=== PATIENT | male | born 1965 | race Caucasian/White ===

== ENCOUNTER → 2017-02-20 | Outpatient (REF) | payer OTHER | LOC: M LAB REF 11:35 | PROVIDERS: ATTEND Family Medicine | DX: K52.9 Noninfective gastroenteritis and colitis, unspecified (principal) ==

== ENCOUNTER → 2017-04-14 | Outpatient (CLI) | payer OTHER ==
[2017-04-14 09:39] LABS: MEAN CORPUSCULAR HEMOGLOBIN 32.6 pg (27.0-33.0); MEAN CORPUSCULAR HGB CONC 35.1 g/dl (32.0-36.5); MEAN CORPUSCULAR VOLUME 92.9 fl (80.0-96.0); RED CELL DISTRIBUTION WIDTH 12.8 % (11.5-14.5); WHITE BLOOD COUNT 4.3 K/mm3 (4.0-10.0)
[2017-04-14 10:03] LABS: ALBUMIN 3.9 GM/DL (3.2-5.2); ALBUMIN/GLOBULIN RATIO 1.22 (1.00-1.93); ALKALINE PHOSPHATASE 75 U/L (45-117); ALT/SGPT 38 U/L (12-78); ANION GAP 9 MEQ/L (8-16); AST/SGOT 22 U/L (15-37); BILIRUBIN,TOTAL 0.4 MG/DL (0.2-1.0); BLOOD UREA NITROGEN 17 MG/DL (7-18); CALCIUM LEVEL 8.4 MG/DL (8.5-10.1); CARBON DIOXIDE LEVEL 28 MEQ/L (21-32); CHLORIDE LEVEL 101 MEQ/L (98-107); CHOLESTEROL LEVEL 195 MG/DL (<200); CREATININE FOR GFR 0.75 MG/DL (0.70-1.30); GLOMERULAR FILTRATION RATE > 60.0 (>56); GLUCOSE, FASTING 89 MG/DL (70-105); SODIUM LEVEL 138 MEQ/L (136-145); TOTAL PROTEIN 7.1 GM/DL (6.4-8.2); TRIGLYCERIDES LEVEL 465 MG/DL (<150)
== END ==
LOC: M LAB 08:30
PROVIDERS: ATTEND Family Medicine
DX: I10 Essential (primary) hypertension (principal); E29.1 Testicular hypofunction

== ENCOUNTER 2017-07-12 07:34 | Outpatient (CLI) | payer OTHER ==
[~2017-07-12] VITALS: Ht 177.8 cm; Wt 95.3 kg
[~2017-07-12 07:34] MED LIST: ALLO15TA PO; AZEL0.1S3; CELE1CAP9 PO; CENT1TAB13 PO; CYCL10TA PO; FISH1CAP14 PO; FLUT1SPR2; LORA10TA2 PO; LOSA50TA20 PO; MONT10TA2 PO; NS 1,000 ML IV ONE; OMEP20CA3 PO; PRAV40TA2 PO; PROPOFOL 500 MG/50 ML VIAL As Ordered ONE; ROPI1TAB PO; TEST200I14 IM; VERA40TA PO; VITA100067 PO
[2017-07-12] MEDS ORDERED: fentaNYL 100 MCG/2 ML INJECTION (J3010) As Ordered ONE (08:16)
--- NOTE | 2017-07-12 08:39 | ROOR ---
Patient Name: Tristan Mcintyre Procedure Date: 07/12/2017 8:18 AM Date of : 1965 Age: 51 Room: [facility] Gender: Male Note Status: Finalized Procedure: Upper Endoscopy + Biopsies Indications: Heartburn Providers: Rasheed Goins MD Referring MD: MAGUI LEE MD Requesting Provider: Medicines: Monitored Anesthesia Care Complications: No immediate complications. Procedure: Pre-Anesthesia Assessment: - The heart rate, respiratory rate, oxygen saturations, blood pressure, adequacy of pulmonary ventilation, and response to care were monitored throughout the procedure. The Endoscope was introduced through the mouth, and advanced to the second part of duodenum. The upper GI endoscopy was accomplished without difficulty. The patient tolerated the procedure well. Findings: The Z-line was irregular and was found 40 cm from the incisors. Multiple biopsies were obtained with cold forceps for evaluation to rule out Will's Esophagus randomly at the gastroesophageal junction. Localized mild inflammation characterized by congestion (edema) and erythema was found in the gastric antrum. Biopsies were taken with a cold forceps for Helicobacter pylori testing. The exam of the duodenum was otherwise normal. Impression: - Z-line irregular, 40 cm from the incisors. - Chronic gastritis. Biopsied. - Multiple biopsies were obtained at the gastroesophageal junction. - The examination was otherwise normal. Recommendation: - Patient has a contact number available for emergencies. The signs and symptoms of potential delayed complications were discussed with the patient. Return to normal activities tomorrow. Written discharge instructions were provided to the patient. - High fiber diet. - Discharge patient to home. - Follow an antireflux regimen. - Continue present medications. - Await pathology results. - Telephone GI clinic for pathology results in 1 week. - Return to referring physician. - The findings and recommendations were discussed with the patient's family. Rasheed Goins MD Rasheed Goins MD 07/12/2017 8:39:20 AM This report has been signed electronically. Number of Addenda: 0 Note Initiated On: 07/12/2017 8:18 AM Estimated Blood Loss: Estimated blood loss: none.
--- NOTE | 2017-07-12 08:53 | ROOR ---
Patient Name: Tristan Mcintyre Procedure Date: 07/12/2017 8:19 AM Date of : 1965 Age: 51 Room: [facility] Gender: Male Note Status: Finalized Procedure: Total Colonoscopy to Cecum Indications: Screening in patient at increased risk: Colorectal cancer in brother 60 or older Providers: Rasheed Goins MD Referring MD: MAGUI LEE MD Requesting Provider: Medicines: Monitored Anesthesia Care Complications: No immediate complications. Procedure: Pre-Anesthesia Assessment: - The heart rate, respiratory rate, oxygen saturations, blood pressure, adequacy of pulmonary ventilation, and response to care were monitored throughout the procedure. The Colonoscope was introduced through the anus and advanced to the cecum, identified by appendiceal orifice and ileocecal valve. The colonoscopy was performed without difficulty. The patient tolerated the procedure well. The quality of the bowel preparation was excellent. Findings: The perianal and digital rectal examinations were normal. Non-bleeding internal hemorrhoids were found during retroflexion. The hemorrhoids were small and Grade I (internal hemorrhoids that do not prolapse). Scattered small-mouthed diverticula were found in the recto-sigmoid colon, sigmoid colon and descending colon. The exam was otherwise without abnormality on direct and retroflexion views. Impression: - Non-bleeding internal hemorrhoids. - Diverticulosis in the recto-sigmoid colon, in the sigmoid colon and in the descending colon. - The examination was otherwise normal on direct and retroflexion views. - No specimens collected. - The exam was otherwise normal to the cecum. Recommendation: - Patient has a contact number available for emergencies. The signs and symptoms of potential delayed complications were discussed with the patient. Return to normal activities tomorrow. Written discharge instructions were provided to the patient. - High fiber diet. - Discharge patient to home. - Continue present medications. - Repeat colonoscopy in 5 years for surveillance. - Return to referring physician. - The findings and recommendations were discussed with the patient's family. Rasheed Goins MD Rasheed Goins MD 07/12/2017 8:53:08 AM This report has been signed electronically. Number of Addenda: 0 Note Initiated On: 07/12/2017 8:19 AM Estimated Blood Loss: Estimated blood loss: none.
[2017-07-12 09:08] VITALS: BP 143/97
== END 2017-07-12 09:25 | disposition home or self-care (01) ==
LOC: M OPP 07:34
PROVIDERS: ATTEND Internal Medicine Gastroenterology
DX: Z12.11 Encounter for screening for malignant neoplasm of colon (principal); Z80.0 Family history of malignant neoplasm of digestive organs; K64.0 First degree hemorrhoids; K57.30 Diverticulosis of large intestine without perforation or abscess without bleeding; R12 Heartburn; K22.8 Other specified diseases of esophagus; K29.50 Unspecified chronic gastritis without bleeding; I10 Essential (primary) hypertension; E78.00 Pure hypercholesterolemia, unspecified; M10.9 Gout, unspecified; K25.9 Gastric ulcer, unspecified as acute or chronic, without hemorrhage or perforation; M19.90 Unspecified osteoarthritis, unspecified site; M51.26 Other intervertebral disc displacement, lumbar region; J30.9 Allergic rhinitis, unspecified; R06.83 Snoring; Z87.891 Personal history of nicotine dependence; Z79.899 Other long term (current) drug therapy; Z88.0 Allergy status to penicillin
CPT/HCPCS: 43239; 45378; 88305; J3010

== ENCOUNTER → 2017-08-26 | Outpatient (CLI) | payer OTHER ==
[~2017-08-26] MED LIST changes: -NS 1,000 ML IV ONE; -PROPOFOL 500 MG/50 ML VIAL As Ordered ONE
--- NOTE | 2017-08-31 19:03 | SLEEPHOME ---
DATE OF STUDY: 08/26/2017 ORDERED BY: Ana Cordero NP Diagnostic home sleep testing was performed due to concern for the obstructive sleep apnea syndrome in this patient with a history of excessive somnolence and nonrestorative sleep. For testing, a NOX-T3 respiratory monitoring device was used. Continuous record was made of pulse, oxygen saturation, air flow, chest and abdominal strain, and body position. 2 hours and 12 minutes of data were reviewed. Of these, 2 hours and 5 minutes were marked as time in bed. During the interval marked time in bed, there were 43 respiratory events identified of 10 seconds in duration or greater for a respiratory event index of 20.5. The events were primarily obstructive. Baseline heart rate 92 beats per minute. Pulse rate ranged 84 to 107. Baseline saturation 91%. Lowest oxygen saturation 83%. Testing was performed in both the supine and non-supine positions. IMPRESSION: Abnormal home sleep testing with repetitive respiratory events and oxygen desaturation to 83% with a respiratory event index of 20.5 is consistent with the obstructive sleep apnea syndrome. RECOMMENDATION: The patient should be encouraged to undergo formal sleep evaluation with in-laboratory pressure titration in light of the significant oxygen desaturations identified.
== END ==
LOC: M SLEEP HO 11:23
PROVIDERS: ATTEND Nurse Practitioner Adult Health
DX: G47.30 Sleep apnea, unspecified (principal)

== ENCOUNTER → 2018-01-05 | Outpatient (CLI) | payer OTHER ==
[2018-01-05 09:57] LABS: HEMATOCRIT 48.3 % (42.0-52.0); HEMOGLOBIN 16.8 g/dl (14.0-18.0); MEAN CORPUSCULAR HEMOGLOBIN 31.6 pg (27.0-33.0); MEAN CORPUSCULAR HGB CONC 34.8 g/dl (32.0-36.5); PLATELET COUNT, AUTOMATED 243 10^3/uL (150-450); RED BLOOD COUNT 5.31 10^6/uL (4.30-6.10); RED CELL DISTRIBUTION WIDTH 13.2 % (11.5-14.5); WHITE BLOOD COUNT 4.2 10^3/uL (4.0-10.0)
[2018-01-05 10:06] LABS: AMORPHOUS SEDIMENT SMALL (NEGATIVE); APPEARANCE, URINE CLEAR (CLEAR); BACTERIA, URINE AUTO NEGATIVE (NEGATIVE); BILIRUBIN, URINE AUTO NEGATIVE (NEGATIVE); BLOOD, URINE BLOOD NEGATIVE (NEGATIVE); COLOR, URINE YELLOW (YELLOW); GLUCOSE, URINE (UA) AUTO NEGATIVE (NEGATIVE); KETONE, URINE AUTO NEGATIVE (NEGATIVE); LEUKOCYTE ESTERASE, URINE AUTO NEGATIVE (NEGATIVE); MUCUS, URINE SMALL (NEGATIVE); NITRITE, URINE AUTO NEGATIVE (NEGATIVE); PROTEIN, URINE AUTO NEGATIVE (NEGATIVE); RBC, URINE AUTO 1 /HPF (0-3); SPECIFIC GRAVITY URINE AUTO 1.016 (1.002-1.035); SQUAMOUS EPITHELIAL CELL UR AU 0 /HPF (0-6); UROBILINOGEN, URINE AUTO 0.2 mg/dL (0.0-2.0); WBC, URINE AUTO 0 /HPF (0-3)
[2018-01-05 10:29] LABS: ALBUMIN 4.1 GM/DL (3.2-5.2); ALBUMIN/GLOBULIN RATIO 1.28 (1.00-1.93); ALKALINE PHOSPHATASE 69 U/L (45-117); ALT/SGPT 42 U/L (12-78); AMYLASE 22 U/L (25-115); ANION GAP 8 MEQ/L (8-16); AST/SGOT 23 U/L (7-37); BILIRUBIN,TOTAL 0.6 MG/DL (0.2-1.0); BLOOD UREA NITROGEN 15 MG/DL (7-18); CALCIUM LEVEL 8.8 MG/DL (8.5-10.1); CARBON DIOXIDE LEVEL 30 MEQ/L (21-32); CHLORIDE LEVEL 98 MEQ/L (98-107); CREATININE FOR GFR 0.88 MG/DL (0.70-1.30); GLOMERULAR FILTRATION RATE > 60.0 (>56); GLUCOSE, FASTING 101 MG/DL (70-100); POTASSIUM SERUM 4.3 MEQ/L (3.5-5.1); PROSTATIC SPECIFIC AG MONITOR 1.75 NG/ML (< 4.0); SODIUM LEVEL 136 MEQ/L (136-145); TOTAL PROTEIN 7.3 GM/DL (6.4-8.2)
[2018-01-05 11:06] LABS: TESTOSTERONE 237 NG/DL (241-827)
[2018-01-05 11:25] LABS: ESTIMATED AVERAGE GLUCOSE 105 MG/DL (60-110); HEMOGLOBIN A1c 5.3 %
== END ==
LOC: M LAB 09:12
DX: R10.13 Epigastric pain (principal)
CPT/HCPCS: 82150

== ENCOUNTER → 2018-01-10 | Outpatient (CLI) | payer OTHER ==
[~2018-01-10] MED LIST changes: -ALLO15TA PO; -AZEL0.1S3; -CELE1CAP9 PO; -CENT1TAB13 PO; -CYCL10TA PO; -FISH1CAP14 PO; -FLUT1SPR2; +GASTROGRAFIN SOLUTION 30ML (Q9963) As Ordered; +ISOVUE-370 76% 100ML VIAL (Q9967) As Ordered; -LORA10TA2 PO; -LOSA50TA20 PO; -MONT10TA2 PO; -OMEP20CA3 PO; -PRAV40TA2 PO; -ROPI1TAB PO; -TEST200I14 IM; -VERA40TA PO; -VITA100067 PO
== END ==
LOC: M RAD 12:45
DX: R10.13 Epigastric pain (principal)
CPT/HCPCS: Q9963

== ENCOUNTER → 2018-03-15 | Outpatient (CLI) | payer OTHER ==
[2018-03-15 09:13] LABS: ESTIMATED AVERAGE GLUCOSE 97 MG/DL (60-110)
[2018-03-15 09:22] LABS: PROSTATIC SPECIFIC AG MONITOR 1.95 NG/ML (< 4.0)
[2018-03-15 09:27] LABS: TESTOSTERONE 236 NG/DL (241-827)
== END ==
LOC: M LAB 08:06
DX: E29.1 Testicular hypofunction (principal)
CPT/HCPCS: 84403

== ENCOUNTER → 2018-04-01 | Outpatient (CLI) | payer OTHER ==
[2018-04-01 08:02] LABS: HEMATOCRIT 45.7 % (42.0-52.0); HEMOGLOBIN 15.6 g/dl (13.5-17.5); MEAN CORPUSCULAR HEMOGLOBIN 31.5 pg (27.0-33.0); MEAN CORPUSCULAR HGB CONC 34.1 g/dl (32.0-36.5); MEAN CORPUSCULAR VOLUME 92.1 fl (80.0-96.0); PLATELET COUNT, AUTOMATED 246 10^3/uL (150-450); RED BLOOD COUNT 4.96 10^6/uL (4.30-6.10); RED CELL DISTRIBUTION WIDTH 13.2 % (11.5-14.5)
[2018-04-01 08:30] LABS: INR 0.93; PROTHROMBIN TIME 12.5 SECONDS (12.4-14.5)
[2018-04-01 08:31] LABS: PARTIAL THROMBOPLASTIN TIME 31.8 SECONDS (26.8-37.9)
== END ==
LOC: M LAB 07:39
DX: M43.16 Spondylolisthesis, lumbar region (principal); M48.061 Spinal stenosis, lumbar region without neurogenic claudication
CPT/HCPCS: 85610

== ENCOUNTER → 2018-05-10 | Outpatient (CLI) | payer OTHER ==
[2018-05-10 08:53] LABS: HEMATOCRIT 48.8 % (42.0-52.0); HEMOGLOBIN 16.6 g/dl (13.5-17.5); PLATELET COUNT, AUTOMATED 284 10^3/uL (150-450); RED BLOOD COUNT 5.36 10^6/uL (4.30-6.10); RED CELL DISTRIBUTION WIDTH 13.5 % (11.5-14.5); WHITE BLOOD COUNT 5.3 10^3/uL (4.0-10.0)
[2018-05-10 09:27] LABS: ALBUMIN 3.8 GM/DL (3.2-5.2); ALBUMIN/GLOBULIN RATIO 1.15 (1.00-1.93); ALKALINE PHOSPHATASE 77 U/L (45-117); ALT/SGPT 39 U/L (12-78); ANION GAP 7 MEQ/L (8-16); AST/SGOT 16 U/L (7-37); BILIRUBIN,TOTAL 0.6 MG/DL (0.2-1.0); BLOOD UREA NITROGEN 18 MG/DL (7-18); CALCIUM LEVEL 8.7 MG/DL (8.5-10.1); CARBON DIOXIDE LEVEL 30 MEQ/L (21-32); CHLORIDE LEVEL 102 MEQ/L (98-107); CHOLESTEROL LEVEL 157 MG/DL (<200); CHOLESTEROL RISK RATIO 4.906 (<5); CREATININE FOR GFR 0.88 MG/DL (0.70-1.30); GLOMERULAR FILTRATION RATE > 60.0 (>56); GLUCOSE, FASTING 90 MG/DL (70-100); HDL CHOLESTEROL 32 MG/DL (>40); LDL CHOLESTEROL 66.8 MG/DL (<100); NON-HDL-C 125 MG/DL; POTASSIUM SERUM 4.5 MEQ/L (3.5-5.1); PROSTATIC SPECIFIC AG MONITOR 2.39 NG/ML (< 4.0); SODIUM LEVEL 139 MEQ/L (136-145); TOTAL PROTEIN 7.1 GM/DL (6.4-8.2); TRIGLYCERIDES LEVEL 291 MG/DL (<150)
[2018-05-10 09:30] LABS: TESTOSTERONE 333 NG/DL (241-827)
[2018-05-10 09:43] LABS: ESTIMATED AVERAGE GLUCOSE 100 MG/DL (60-110); HEMOGLOBIN A1c 5.1 %
[2018-05-11 10:33] LABS: HEPATITIS B SURFACE ANTIGEN NEGATIVE (NEGATIVE)
[2018-05-11 10:47] LABS: HEPATITIS C VIRUS ABY INDEX 0.1 INDEX (<0.8)
[2018-05-11 10:48] LABS: HEPATITIS B CORE ANTIBODY IGM NEGATIVE (NEGATIVE)
[2018-05-11 10:51] LABS: HEPATITIS A ANTIBODY IGM NEGATIVE (NEGATIVE)
== END ==
LOC: M LAB 07:50
DX: I10 Essential (primary) hypertension (principal); R53.83 Other fatigue; E03.9 Hypothyroidism, unspecified
CPT/HCPCS: 84403

== ENCOUNTER → 2019-02-23 | Outpatient (CLI) | payer OTHER ==
[~2019-02-23] MED LIST changes: +ALLO300T2 PO; +AZEL0.1S3; +CELE1CAP9 PO; +CENT1TAB13 PO; +CYCL10TA PO; +FISH1CAP14 PO; +FLUT1SPR2; -GASTROGRAFIN SOLUTION 30ML (Q9963) As Ordered; -ISOVUE-370 76% 100ML VIAL (Q9967) As Ordered; +LORA-243 PO; +LOSA50TA88 PO; +MONT10TA2 PO; +OMEP20CA3 PO; +PRAV40TA2 PO; +ROPI1TAB PO; +TEST200I14 IM; +VERA40TA PO; +VITA100067 PO
[2019-02-23 08:25] LABS: HEMATOCRIT 46.9 % (42.0-52.0); HEMOGLOBIN 15.9 g/dl (13.5-17.5); MEAN CORPUSCULAR HEMOGLOBIN 31.9 pg (27.0-33.0); MEAN CORPUSCULAR HGB CONC 33.9 g/dl (32.0-36.5); PLATELET COUNT, AUTOMATED 274 10^3/uL (150-450); RED BLOOD COUNT 4.99 10^6/uL (4.30-6.10); WHITE BLOOD COUNT 4.2 10^3/uL (4.0-10.0)
[2019-02-23 08:39] LABS: INR 1.01; PROTHROMBIN TIME 13.4 SECONDS (12.1-14.4)
[2019-02-23 09:01] LABS: ALBUMIN 3.9 GM/DL (3.2-5.2); ALT/SGPT 36 U/L (12-78); BILIRUBIN,TOTAL 0.4 MG/DL (0.2-1.0); BLOOD UREA NITROGEN 15 MG/DL (7-18); CALCIUM LEVEL 8.9 MG/DL (8.5-10.1); CARBON DIOXIDE LEVEL 28 MEQ/L (21-32); CHLORIDE LEVEL 103 MEQ/L (98-107); CHOLESTEROL LEVEL 165 MG/DL (<200); CHOLESTEROL RISK RATIO 6.875 (<5); CREATININE FOR GFR 0.86 MG/DL (0.70-1.30); GLOMERULAR FILTRATION RATE > 60.0 (>56); GLUCOSE, FASTING 99 MG/DL (70-100); HDL CHOLESTEROL 24 MG/DL (>40); NON-HDL-C 141 MG/DL; SODIUM LEVEL 139 MEQ/L (136-145); TOTAL PROTEIN 6.7 GM/DL (6.4-8.2); TRIGLYCERIDES LEVEL 733 MG/DL (<150)
[2019-02-23 09:25] LABS: HEMOGLOBIN A1c 5.1 %
--- NOTE | 2019-02-23 20:41 | ECGEPIP ---
Stationary ECG Study [facility] Test Date: 2019-02-23 Pat Name: GEOFFREY ECHEVARRIA Department: Room: - Gender: M Yam Curer: [facility] : 1965 Requested By: Scottie Kan Order Number: [id number] Reading MD: Jas Burkett Measurements Intervals [place] Rate: 91 P: 50 MI: 172 QRS: 20 QRSD: 86 T: 90 QT: 354 QTc: 437 Interpretive Statements Normal sinus rhythm LA conduction disturbance? Slow R wave progression - rule out prior septal injury. Nonspecific ST/T-wave abnormalities Repolarization change from 02/19/15 - correlation advised Electronically Signed On 02-23-2019 20:41:24 EDT by Jas Burkett
--- NOTE | 2019-02-24 02:51 | REP ---
Clinical: Preoperative assessment with history of hypertension . Comparison: 10/29/2014, 02/19/2015 . Technique: PA and lateral. Findings: The mediastinum and cardiac silhouette are normal. The lung ashraf are clear and without acute consolidation, effusion, or pneumothorax. The skeletal structures are intact and normal. Impression: 1. No acute cardiopulmonary process. Electronically Signed by Gen Moran MD 02/24/2019 02:43 A
== END ==
LOC: M LAB 07:58
PROVIDERS: ATTEND Family Medicine
DX: Z01.812 Encounter for preprocedural laboratory examination (principal); I10 Essential (primary) hypertension

== ENCOUNTER → 2019-04-25 | Outpatient (CLI) | payer OTHER ==
[2019-04-25 09:14] LABS: HEMATOCRIT 43.5 % (42.0-52.0); HEMOGLOBIN 14.9 g/dl (13.5-17.5); MEAN CORPUSCULAR HEMOGLOBIN 31.8 pg (27.0-33.0); MEAN CORPUSCULAR HGB CONC 34.3 g/dl (32.0-36.5); MEAN CORPUSCULAR VOLUME 92.8 fl (80.0-96.0); PLATELET COUNT, AUTOMATED 221 10^3/uL (150-450); RED BLOOD COUNT 4.69 10^6/uL (4.30-6.10); WHITE BLOOD COUNT 3.9 10^3/uL (4.0-10.0)
[2019-04-25 09:18] LABS: ALBUMIN 3.8 GM/DL (3.2-5.2); ALT/SGPT 34 U/L (12-78); BILIRUBIN,TOTAL 0.4 MG/DL (0.2-1.0); BLOOD UREA NITROGEN 17 MG/DL (7-18); CALCIUM LEVEL 8.9 MG/DL (8.5-10.1); CARBON DIOXIDE LEVEL 27 MEQ/L (21-32); CHLORIDE LEVEL 104 MEQ/L (98-107); CHOLESTEROL LEVEL 160 MG/DL (<200); CHOLESTEROL RISK RATIO 5.925 (<5); CREATININE FOR GFR 0.89 MG/DL (0.70-1.30); GLOMERULAR FILTRATION RATE > 60.0 (>56); GLUCOSE, FASTING 101 MG/DL (70-100); HDL CHOLESTEROL 27 MG/DL (>40); NON-HDL-C 133 MG/DL; PROSTATIC SPECIFIC AG MONITOR 1.95 NG/ML (< 4.00); SODIUM LEVEL 139 MEQ/L (136-145); TOTAL PROTEIN 6.7 GM/DL (6.4-8.2); TRIGLYCERIDES LEVEL 743 MG/DL (<150)
[2019-04-25 10:01] LABS: TESTOSTERONE 177 NG/DL (241-827)
== END ==
LOC: M LAB 07:51
PROVIDERS: ATTEND Family Medicine
DX: R53.83 Other fatigue (principal)

== ENCOUNTER → 2019-06-27 | Outpatient (CLI) | payer OTHER ==
[~2019-06-27] MED LIST changes: +AMLO10TA5 PO; +BENA25CA4 PO; +CELE1CAP4 PO; +FISH1000 PO; +GABA-843 PO; +GEMF600T5 PO; +MELA3TAB2 PO; +METO25TA4 PO; +MULTCAP PO; +NORT10CA2 PO; -OMEP20CA3 PO; +OMEP20CA4 PO; +OXYC-517 PO; +OXYC5CAP56 PO; +PROZ10CA7 PO; +SUCR1SUS PO; +VITA-157 PO; +VITA500T PO; +VITAD1000T PO; +VITATAB31 PO; +ZYLO300T6 PO
[2019-06-27 08:01] LABS: HEMATOCRIT 41.7 % (42.0-52.0); HEMOGLOBIN 14.4 g/dl (13.5-17.5); MEAN CORPUSCULAR HEMOGLOBIN 31.9 pg (27.0-33.0); MEAN CORPUSCULAR HGB CONC 34.5 g/dl (32.0-36.5); MEAN CORPUSCULAR VOLUME 92.5 fl (80.0-96.0); PLATELET COUNT, AUTOMATED 287 10^3/uL (150-450); RED BLOOD COUNT 4.51 10^6/uL (4.30-6.10); WHITE BLOOD COUNT 3.4 10^3/uL (4.0-10.0)
[2019-06-27 08:21] LABS: HEMOGLOBIN A1c 5.6 %
[2019-06-27 08:33] LABS: ALT/SGPT 36 U/L (12-78); BILIRUBIN,TOTAL 0.4 MG/DL (0.2-1.0); BLOOD UREA NITROGEN 21 MG/DL (7-18); CALCIUM LEVEL 9.1 MG/DL (8.5-10.1); CARBON DIOXIDE LEVEL 28 MEQ/L (21-32); CHLORIDE LEVEL 102 MEQ/L (98-107); CHOLESTEROL LEVEL 191 MG/DL (<200); CHOLESTEROL RISK RATIO 5.968 (<5); CREATININE FOR GFR 0.86 MG/DL (0.70-1.30); GLOMERULAR FILTRATION RATE > 60.0 (>56); GLUCOSE, FASTING 101 MG/DL (70-100); HDL CHOLESTEROL 32 MG/DL (>40); NON-HDL-C 159 MG/DL; POTASSIUM SERUM 4.3 MEQ/L (3.5-5.1); PROSTATIC SPECIFIC AG MONITOR 1.33 NG/ML (< 4.00); SODIUM LEVEL 137 MEQ/L (136-145); TOTAL PROTEIN 7.2 GM/DL (6.4-8.2); TRIGLYCERIDES LEVEL 678 MG/DL (<150)
== END ==
LOC: M LAB 07:29
PROVIDERS: ATTEND Family Medicine
DX: Z01.818 Encounter for other preprocedural examination (principal)

== ENCOUNTER 2019-06-29 05:46 | Day surgery (SDC) | payer OTHER ==
[~2019-06-29] VITALS: Ht 177.8 cm; Wt 100.7 kg
[~2019-06-29 05:46] MED LIST changes: -PROZ10CA7 PO
[2019-06-29] MEDS ORDERED: LR 1,000 ML IV ONE (06:00)
[2019-06-29] MEDS ORDERED: PROZ10CA7 PO (06:13)
[2019-06-29 06:29] LABS: HEMATOCRIT 43.8 % (42.0-52.0); HEMOGLOBIN 14.9 g/dl (13.5-17.5); MEAN CORPUSCULAR HEMOGLOBIN 32.5 pg (27.0-33.0); MEAN CORPUSCULAR VOLUME 95.6 fl (80.0-96.0); PLATELET COUNT, AUTOMATED 284 10^3/uL (150-450); RED BLOOD COUNT 4.58 10^6/uL (4.30-6.10); WHITE BLOOD COUNT 3.7 10^3/uL (4.0-10.0)
[2019-06-29] MEDS ORDERED: BUPIVACAINE/EPIN 0.25% 30 ML VIAL As Ordered ONE (06:50)
[2019-06-29] MEDS ORDERED: MIDAZOLAM INJ 2 MG/2 ML VIAL (J2250) As Ordered ONE (08:21)
[2019-06-29] MEDS ORDERED: fentaNYL 250 MCG/5 ML INJECTION (J3010) As Ordered ONE (08:21)
[2019-06-29] MEDS ORDERED: dexameTHASONE 4 MG/ML 1ML VIAL (J1100) As Ordered ONE (08:21)
[2019-06-29] MEDS ORDERED: PROPOFOL 200 MG/20 ML VIAL As Ordered ONE (08:21)
[2019-06-29] MEDS ORDERED: ONDANSETRON 4MG/2ML VIAL (J2405) As Ordered ONE (08:21)
[2019-06-29] MEDS ORDERED: LIDOCAINE 2% INJ 100 MG/5 ML SDV (FOR ANES.) As Ordered ONE (08:21)
[2019-06-29 08:48] LABS: BLOOD UREA NITROGEN 20 MG/DL (7-18); GLUCOSE, FASTING 101 MG/DL (70-100)
[2019-06-29 08:49] LABS: CARBON DIOXIDE LEVEL 28 MEQ/L (21-32); CHLORIDE LEVEL 104 MEQ/L (98-107); GLOMERULAR FILTRATION RATE > 60.0 (>56); POTASSIUM SERUM 3.9 MEQ/L (3.5-5.1); SODIUM LEVEL 139 MEQ/L (136-145)
[2019-06-29] MEDS ORDERED: hydrALAZINE INJ 20 MG/ML VIAL As Ordered ONE (08:53)
[2019-06-29] MEDS: hydrALAZINE INJ 20 MG/ML VIAL IV PRN ×4 (08:56→09:11)
[2019-06-29 09:11] VITALS: BP 186/78
[2019-06-29] MEDS ORDERED: PERCOCET 5MG/325MG TAB PO PRN ×3 (09:15→09:30)
[2019-06-29] MEDS ORDERED: fentaNYL 100 MCG/2 ML INJECTION (J3010) IV PRN (09:15)
[2019-06-29] MEDS ORDERED: LR 1,000 ML IV SCH ×2 (09:15→09:30)
[2019-06-29] MEDS ORDERED: ONDANSETRON 4MG/2ML VIAL (J2405) IV PRN ×2 (09:15→09:30)
[2019-06-29] MEDS ORDERED: MORPHINE 4 MG/ML 1ML VIAL/SYRINGE (J2270) IV PRN (09:30)
[2019-06-29 09:37] VITALS: BP 140/76
--- NOTE | 2019-07-03 11:44 | RO ---
DATE OF PROCEDURE: 06/29/2019 PREOPERATIVE DIAGNOSIS: Left ulnar neuropathy across the elbow. POSTOPERATIVE DIAGNOSIS: Left ulnar neuropathy across the elbow. PROCEDURE PERFORMED: Left ulnar nerve decompression at the elbow. SURGEON: Masoud Solis MD SHOOTER HELPER: Dick Dooley, Physician Brothel Keeper ANESTHESIA: General. ESTIMATED BLOOD LOSS: Less than 30 mL. No tourniquet was required. No complications. INDICATION: Tristan is a 53-year-old gentleman who has numbness in the left upper extremity going on for a number of months. Electrodiagnostic studies suggest ulnar neuropathy. He has elected for operative intervention. Consent reviewed in detail, including a helen discussion of the pathology involved, the procedure proposed, the alternatives including doing nothing, and risks including but not limited to pain, failure, incomplete relief, need for more surgery, nerve injury, stiffness, infection, or some other issues. The patient agreed to proceed. DESCRIPTION OF PROCEDURE: Operative course: Identified in the holding area. Site and side verified. Brought to the operating room. Once anesthesia was administered, positioned in usual fashion for exposure of the left upper extremity. Once he was sterilely prepped and draped and positioned, and I and the semiconductor technician were comfortable with the patient's positioning, we began the procedure. The medial epicondyle of the left elbow was palpated. Incision was marked with a sterile marking pen. Infiltrated with 0.25% Marcaine with epinephrine 4 mL. I utilized loupe magnification. I made the incision with a 10 blade developed down through skin and subcuticular tissues with blunt dissection. Small cutaneous nerves crossing the incision were protected. Encountered the medial epicondyle and Rodriguez fascia. Rodriguez fascia was sharply opened with a 15 blade knife and an iris scissors. The ulnar nerve was exposed. We continued dissection proximally and distally using the iris scissors, as well as bipolar cautery, to help with hemostasis. The nerve was directly visualized throughout. The dissection continued approximately 3 fingerbreadths proximal to the medial condyle and approximately 2 fingerbreadths distal, splitting the flexor muscle group and fascia over the nerve. The nerve was mildly mobilized with a blunt spreading instrument. Then the elbow was placed through a range of motion. I appreciated significant decompression of the nerve. The nerve did not seem to spontaneously sublux. Next, irrigation was accomplished. The wound was closed with interrupted and running stitch. Steri-Strips applied. Dressing applied. The patient was then able to be extubated, moved to recovery room in good condition. For further details, please refer to medical record.
== END 2019-06-29 10:20 | disposition home or self-care (01) ==
LOC: M SDC 05:46
PROVIDERS: ATTEND Orthopaedic Surgery
DX: G56.22 Lesion of ulnar nerve, left upper limb (principal); I10 Essential (primary) hypertension; E78.5 Hyperlipidemia, unspecified; M10.9 Gout, unspecified; K21.9 Gastro-esophageal reflux disease without esophagitis; K58.8 Other irritable bowel syndrome; Z88.0 Allergy status to penicillin; G47.30 Sleep apnea, unspecified; Z79.899 Other long term (current) drug therapy; F32.9 Major depressive disorder, single episode, unspecified
CPT/HCPCS: 36415; 64718; 80048; 85027; J1100; J2250; J2405; J3010

== ENCOUNTER → 2019-10-11 | Outpatient (CLI) | payer OTHER ==
[~2019-10-11] MED LIST changes: +CHOL100029 PO; -MELA3TAB2 PO; +MELA3TAB60 PO; +PROZ10CA7 PO; -VITAD1000T PO
[2019-10-11 08:12] LABS: CHOLESTEROL LEVEL 213 MG/DL (<200); HDL CHOLESTEROL 31 MG/DL (>40); LDL CHOLESTEROL 112 MG/DL (<100); NON-HDL-C 182 MG/DL; PROSTATIC SPECIFIC AG MONITOR 1.68 NG/ML (< 4.00); TRIGLYCERIDES LEVEL 351 MG/DL (<150)
[2019-10-11 09:49] LABS: TESTOSTERONE 308 NG/DL (241-827)
[2019-10-11 10:00] LABS: HEPATITIS B SURFACE ANTIGEN NEGATIVE (NEGATIVE)
[2019-10-11 10:27] LABS: HEPATITIS C VIRUS ABY INDEX 0.1 INDEX (<0.8)
[2019-10-11 10:30] LABS: HEPATITIS A ANTIBODY IGM NEGATIVE (NEGATIVE)
[2019-10-11 11:16] LABS: HEPATITIS B CORE ANTIBODY IGM NEGATIVE (NEGATIVE)
== END ==
LOC: M LAB 07:05
PROVIDERS: ATTEND Family Medicine
DX: I10 Essential (primary) hypertension (principal); R53.83 Other fatigue; E29.1 Testicular hypofunction

== ENCOUNTER → 2019-12-14 | Outpatient (CLI) | payer OTHER ==
[~2019-12-14] MED LIST changes: +OMEP1CAP73 PO; -OMEP20CA4 PO; +SUCR1ORA PO; -SUCR1SUS PO
--- NOTE | 2019-12-15 02:25 | REP ---
Clinical: Hypertension and chronic medical renal disease. Technique: Pugh scale and color Doppler evaluation of the kidneys and renal vasculature using curved array transducer. Findings: The kidneys are essentially normal in contour size and echogenicity and reniform shape without hydronephrosis, nephrolithiasis, or renal mass lesion. Right kidney measures 13.2 x 6.6 x 5.6 cm and includes 1 cm cyst. Left kidney measures 13.8 x 6.1 x 6.7 cm . Bladder is incompletely distended and grossly normal by current evaluation. Color Doppler evaluation of the renal vasculature demonstrates normal arterial wave patterns, velocities, renal aortic ratios, resistive indices and the acceleration time. No sonographic evidence for renal arterial stenosis noted. Renal vein is patent. Right Kidney: Peak arterial velocity: 109 cm/sec . Renal aortic ratio: 1.1 . Resistive indices: 0.63 - 0.66 . Acceleration times: 0.033 - 0.045 . Left kidney: Peak arterial velocity: 185 cm/sec . Renal aortic ratio: 1.9 . Resistive indices: 0.64 - 0.67 . Acceleration times: 0.036 - 0.042 . Impression: 1. 1 cm right mid pole cyst. 2. No hydronephrosis. 3. No definite renal arterial stenosis is appreciated although there is moderately asymmetric, increased velocity to the left main renal artery without further findings to suggest stenosis. Renal scintigraphy may be warranted to assess renal functionality. Electronically Signed by Gen Moran MD 12/15/2019 02:18 A
== END ==
LOC: M RAD 08:33
PROVIDERS: ATTEND Physician Assistant
DX: N28.1 Cyst of kidney, acquired (principal); I10 Essential (primary) hypertension

== ENCOUNTER → 2020-01-03 | Outpatient (CLI) | payer OTHER ==
[~2020-01-03] MED LIST changes: -MONT10TA2 PO; +MONT10TA4 PO; -ROPI1TAB PO; +ROPI1TAB3 PO
[2020-01-03 09:05] LABS: ALBUMIN 4.1 GM/DL (3.2-5.2); ALT/SGPT 33 U/L (12-78); BILIRUBIN,TOTAL 0.4 MG/DL (0.2-1.0); BLOOD UREA NITROGEN 20 MG/DL (7-18); CALCIUM LEVEL 9.1 MG/DL (8.5-10.1); CARBON DIOXIDE LEVEL 30 MEQ/L (21-32); CHLORIDE LEVEL 100 MEQ/L (98-107); CHOLESTEROL LEVEL 187 MG/DL (<200); CHOLESTEROL RISK RATIO 6.678 (<5); CREATININE FOR GFR 0.78 MG/DL (0.70-1.30); GLOMERULAR FILTRATION RATE > 60.0 (>56); GLUCOSE, FASTING 96 MG/DL (70-100); HDL CHOLESTEROL 28 MG/DL (>40); NON-HDL-C 159 MG/DL; POTASSIUM SERUM 3.8 MEQ/L (3.5-5.1); PROSTATIC SPECIFIC AG MONITOR 1.65 NG/ML (< 4.00); SODIUM LEVEL 136 MEQ/L (136-145); TOTAL PROTEIN 7.2 GM/DL (6.4-8.2); TRIGLYCERIDES LEVEL 435 MG/DL (<150)
[2020-01-03 09:11] LABS: TESTOSTERONE 230 NG/DL (241-827)
[2020-01-03 10:01] LABS: HEMOGLOBIN A1c 5.3 %
[2020-01-03 13:18] LABS: HEMATOCRIT 43.4 % (42.0-52.0); MEAN CORPUSCULAR HEMOGLOBIN 31.1 pg (27.0-33.0); MEAN CORPUSCULAR HGB CONC 34.6 g/dl (32.0-36.5); MEAN CORPUSCULAR VOLUME 89.9 fl (80.0-96.0); PLATELET COUNT, AUTOMATED 353 10^3/uL (150-450); RED BLOOD COUNT 4.83 10^6/uL (4.30-6.10); WHITE BLOOD COUNT 4.7 10^3/uL (4.0-10.0)
== END ==
LOC: M LAB 07:37
PROVIDERS: ATTEND Family Medicine
DX: I10 Essential (primary) hypertension (principal); R53.83 Other fatigue; E03.9 Hypothyroidism, unspecified

== ENCOUNTER → 2020-01-15 | Outpatient (CLI) | payer OTHER ==
[~2020-01-15] MED LIST changes: +ISOVUE-370 76% 100ML VIAL (Q9967) As Ordered ONE
--- NOTE | 2020-01-15 10:37 | REPVR ---
PROCEDURE INFORMATION: Exam: CT Angiography Abdomen and Pelvis With Contrast Exam date and time: 01/15/2020 8:58 AM Age: 54 years old Clinical indication: Other: Hypertension TECHNIQUE: Imaging protocol: Computed tomographic angiography of the abdomen and pelvis with intravenous contrast material. 3D rendering: MIP and/or 3D reconstructed images were created by the technologist. Radiation optimization: All CT scans at this facility use at least one of these dose optimization techniques: automated exposure control; mA and/or kV adjustment per patient size (includes targeted exams where dose is matched to clinical indication); or iterative reconstruction. Contrast material: ISOVUE 370; Contrast volume: 100 ml; Contrast route: IV; COMPARISON: CT ABD PELVIS WITH CONTRAST 01/10/2018 2:45 PM FINDINGS: Aorta: The vasculature demonstrates diffuse mild atherosclerotic calcification. Celiac trunk and mesenteric arteries: No occlusion or significant stenosis. Renal arteries: No occlusion or significant stenosis. Right iliac arteries: No occlusion or significant stenosis. Left iliac arteries: No occlusion or significant stenosis. Liver: There are no focal liver lesions present. Gallbladder and bile ducts: The gallbladder is normal. Pancreas: The pancreas is normal. Spleen: The spleen is normal. Adrenals: The adrenal glands are normal. Kidneys and ureters: The kidneys are normal. There is an unusual collateral arterial supply to the lower pole of the right kidney from the right iliac artery and the main renal artery is caudal in origin only 4 cm above the aortic bifurcation on coronal image 54. There is no obvious stenosis, however. At least 3 arteries supplying the left kidney from the usual level on coronal image 67. There appears to be mild ostial stenosis, particularly of the highest vessel supplying the upper pole. Stomach and bowel: Unremarkable. No obstruction. No mucosal thickening. Appendix: A normal appendix is identified. Intraperitoneal space: Unremarkable. No free air. No significant fluid collection. Lymph nodes: Unremarkable. No enlarged lymph nodes. Bladder: Unremarkable. No mass. Reproductive: Unremarkable as visualized. Bones/joints: The spine demonstrates moderate degenerative changes at multiple levels. There is moderate spinal stenosis at the mid lumbar levels and narrowing of the foramina. Soft tissues: There is a fat filled right inguinal hernia. IMPRESSION: 1. There is an unusual collateral arterial supply to the lower pole of the right kidney from the right iliac artery and the main renal artery is caudal in origin only 4 cm above the aortic bifurcation on coronal image 54. There is no obvious stenosis, however. 2. At least 3 arteries supplying the left kidney from the usual level on coronal image 67. There appears to be mild ostial stenosis, particularly of the highest vessel supplying the upper pole. Electronically signed by: Jay Desai On 01/15/2020 10:36:57 AM
== END ==
LOC: M RAD 08:17
PROVIDERS: ATTEND Internal Medicine Cardiovascular Disease
DX: I70.1 Atherosclerosis of renal artery (principal); M48.061 Spinal stenosis, lumbar region without neurogenic claudication; I10 Essential (primary) hypertension
CPT/HCPCS: 74174; Q9967

== ENCOUNTER → 2020-04-23 | Outpatient (CLI) | payer OTHER ==
[~2020-04-23] MED LIST changes: +CYCL-707 PO; -CYCL10TA PO; -ISOVUE-370 76% 100ML VIAL (Q9967) As Ordered ONE; -MELA3TAB60 PO; +MELA3TAB7 PO; +VITA-243 PO; -VITA500T PO
[2020-04-23 08:32] LABS: PROSTATIC SPECIFIC AG MONITOR 1.94 NG/ML (< 4.00)
== END ==
LOC: M LAB 07:27
PROVIDERS: ATTEND Family Medicine
DX: I10 Essential (primary) hypertension (principal)

== ENCOUNTER → 2020-11-20 | Outpatient (CLI) | payer OTHER ==
[~2020-11-20] MED LIST changes: -AMLO10TA5 PO; +AMLO1TAB25 PO; -MONT10TA4 PO; +MONT5TAB2 PO
[2020-11-20 10:43] LABS: ALBUMIN 4.2 GM/DL (3.2-5.2); ALT/SGPT 39 U/L (12-78); BILIRUBIN,TOTAL 0.6 MG/DL (0.2-1.0); BLOOD UREA NITROGEN 18 MG/DL (7-18); CALCIUM LEVEL 9.5 MG/DL (8.5-10.1); CARBON DIOXIDE LEVEL 32 MEQ/L (21-32); CHLORIDE LEVEL 98 MEQ/L (98-107); CHOLESTEROL LEVEL 208 MG/DL (<200); CHOLESTEROL RISK RATIO 6.933 (<5); CREATININE FOR GFR 0.74 MG/DL (0.70-1.30); GLOMERULAR FILTRATION RATE > 60.0 (>56); GLUCOSE, FASTING 111 MG/DL (70-100); HDL CHOLESTEROL 30 MG/DL (>40); NON-HDL-C 178 MG/DL; POTASSIUM SERUM 3.5 MEQ/L (3.5-5.1); SODIUM LEVEL 136 MEQ/L (136-145); TOTAL PROTEIN 7.6 GM/DL (6.4-8.2); TRIGLYCERIDES LEVEL 686 MG/DL (<150)
== END ==
LOC: M LAB 09:15
PROVIDERS: ATTEND Physician Assistant
DX: E78.2 Mixed hyperlipidemia (principal)

== ENCOUNTER → 2020-11-20 | Outpatient (CLI) | payer OTHER ==
[2020-11-20 09:55] LABS: HEMATOCRIT 44.4 % (42.0-52.0); HEMOGLOBIN 15.1 g/dl (13.5-17.5); MEAN CORPUSCULAR HEMOGLOBIN 30.8 pg (27.0-33.0); MEAN CORPUSCULAR VOLUME 90.6 fl (80.0-96.0); PLATELET COUNT, AUTOMATED 314 10^3/uL (150-450); WHITE BLOOD COUNT 4.1 10^3/uL (4.0-10.0)
[2020-11-20 10:39] LABS: ALBUMIN 4.3 GM/DL (3.2-5.2); ALT/SGPT 41 U/L (12-78); BILIRUBIN,TOTAL 0.5 MG/DL (0.2-1.0); BLOOD UREA NITROGEN 19 MG/DL (7-18); CALCIUM LEVEL 9.4 MG/DL (8.5-10.1); CARBON DIOXIDE LEVEL 31 MEQ/L (21-32); CHLORIDE LEVEL 98 MEQ/L (98-107); CHOLESTEROL LEVEL 209 MG/DL (<200); CHOLESTEROL RISK RATIO 6.966 (<5); CREATININE FOR GFR 0.76 MG/DL (0.70-1.30); GLOMERULAR FILTRATION RATE > 60.0 (>56); GLUCOSE, FASTING 113 MG/DL (70-100); HDL CHOLESTEROL 30 MG/DL (>40); NON-HDL-C 179 MG/DL; POTASSIUM SERUM 3.6 MEQ/L (3.5-5.1); PROSTATIC SPECIFIC AG MONITOR 1.61 NG/ML (< 4.00); SODIUM LEVEL 137 MEQ/L (136-145); TESTOSTERONE 66 NG/DL (241-827); TOTAL PROTEIN 7.6 GM/DL (6.4-8.2); TRIGLYCERIDES LEVEL 658 MG/DL (<150)
== END ==
LOC: M LAB 09:12
PROVIDERS: ATTEND Family Medicine
DX: E03.9 Hypothyroidism, unspecified (principal); I10 Essential (primary) hypertension; R53.83 Other fatigue

== ENCOUNTER → 2021-04-23 | Outpatient (CLI) | payer OTHER ==
[~2021-04-23] MED LIST changes: +GABA-282 PO; -GABA-843 PO; +MONT10TA10 PO; -MONT5TAB2 PO; -VITA-157 PO; +VITAE40CA PO
[2021-04-23 08:39] LABS: HEMATOCRIT 48.6 % (42.0-52.0); HEMOGLOBIN 15.9 g/dl (13.5-17.5); MEAN CORPUSCULAR HEMOGLOBIN 29.7 pg (27.0-33.0); MEAN CORPUSCULAR HGB CONC 32.7 g/dl (32.0-36.5); MEAN CORPUSCULAR VOLUME 90.7 fl (80.0-96.0); PLATELET COUNT, AUTOMATED 301 10^3/uL (150-450); RED BLOOD COUNT 5.36 10^6/uL (4.30-6.10); WHITE BLOOD COUNT 5.2 10^3/uL (4.0-10.0)
[2021-04-23 08:59] LABS: ALBUMIN 3.8 GM/DL (3.2-5.2); ALT/SGPT 22 U/L (12-78); BILIRUBIN,TOTAL 0.4 MG/DL (0.2-1.0); BLOOD UREA NITROGEN 16 MG/DL (7-18); CALCIUM LEVEL 8.9 MG/DL (8.5-10.1); CARBON DIOXIDE LEVEL 28 MEQ/L (21-32); CHLORIDE LEVEL 105 MEQ/L (98-107); CHOLESTEROL LEVEL 191 MG/DL (<200); CHOLESTEROL RISK RATIO 7.074 (<5); CREATININE FOR GFR 0.74 MG/DL (0.70-1.30); GLOMERULAR FILTRATION RATE > 60.0 (>56); GLUCOSE, FASTING 92 MG/DL (70-100); HDL CHOLESTEROL 27 MG/DL (>40); LDL CHOLESTEROL 112 MG/DL (<100); NON-HDL-C 164 MG/DL; POTASSIUM SERUM 4.4 MEQ/L (3.5-5.1); PROSTATIC SPECIFIC AG MONITOR 2.16 NG/ML (< 4.00); RHEUMATOID FACTOR QUANT < 10.0 IU/ML (<15.0); SODIUM LEVEL 138 MEQ/L (136-145); TOTAL PROTEIN 6.7 GM/DL (6.4-8.2); TRIGLYCERIDES LEVEL 260 MG/DL (<150)
[2021-04-23 09:29] LABS: ERYTHROCYTE SEDIMENTATION RATE 2 mm/hr (0-20)
[2021-04-23 11:26] LABS: TESTOSTERONE 406 NG/DL (241-827)
== END ==
LOC: M LAB 07:24
PROVIDERS: ATTEND Family Medicine
DX: I10 Essential (primary) hypertension (principal); R53.83 Other fatigue

== ENCOUNTER → 2021-10-24 | Outpatient (CLI) | payer OTHER ==
[2021-10-24 08:41] LABS: HEMATOCRIT 49.2 % (42.0-52.0); HEMOGLOBIN 16.5 g/dl (13.5-17.5); MEAN CORPUSCULAR HEMOGLOBIN 30.5 pg (27.0-33.0); MEAN CORPUSCULAR HGB CONC 33.5 g/dl (32.0-36.5); MEAN CORPUSCULAR VOLUME 90.9 fl (80.0-96.0); PLATELET COUNT, AUTOMATED 396 10^3/uL (150-450); RED BLOOD COUNT 5.41 10^6/uL (4.30-6.10); WHITE BLOOD COUNT 5.1 10^3/uL (4.0-10.0)
[2021-10-24 09:12] LABS: CHOLESTEROL RISK RATIO 5.354 (<5); PROSTATIC SPECIFIC AG MONITOR 2.38 NG/ML (< 4.00); THYROID STIMULATING HORMONE 1.79 uIU/ML (0.358-3.740)
[2021-10-24 09:13] LABS: TOTAL 25(OH) VITAMIN D 42.6 NG/ML (30.0-100.0)
[2021-10-24 09:35] LABS: HEMOGLOBIN A1c 5.1 %
== END ==
LOC: M LAB 08:16
PROVIDERS: ATTEND Family Medicine
DX: R53.83 Other fatigue (principal); E03.9 Hypothyroidism, unspecified; I10 Essential (primary) hypertension

== ENCOUNTER → 2022-05-07 | Outpatient (CLI) | payer OTHER ==
[~2022-05-07] MED LIST changes: +LOSA50TA28 PO; -LOSA50TA88 PO; -MONT10TA10 PO; +MONT10TA97 PO
[2022-05-07 08:41] LABS: HEMATOCRIT 41.8 % (42.0-52.0); HEMOGLOBIN 13.8 g/dl (13.5-17.5); MEAN CORPUSCULAR HEMOGLOBIN 30.4 pg (27.0-33.0); MEAN CORPUSCULAR VOLUME 92.1 fl (80.0-96.0); PLATELET COUNT, AUTOMATED 371 10^3/uL (150-450); RED BLOOD COUNT 4.54 10^6/uL (4.30-6.10); WHITE BLOOD COUNT 5.2 10^3/uL (4.0-10.0)
[2022-05-07 09:28] LABS: ALBUMIN 3.9 GM/DL (3.2-5.2); ALT/SGPT 15 U/L (12-78); BILIRUBIN,TOTAL 0.5 MG/DL (0.2-1.0); BLOOD UREA NITROGEN 17 MG/DL (7-18); CALCIUM LEVEL 9.6 MG/DL (8.5-10.1); CARBON DIOXIDE LEVEL 29 MEQ/L (21-32); CHLORIDE LEVEL 104 MEQ/L (98-107); CHOLESTEROL LEVEL 148 MG/DL (<200); CHOLESTEROL RISK RATIO 4.933 (<5); CREATININE FOR GFR 0.77 MG/DL (0.70-1.30); GLOMERULAR FILTRATION RATE > 60.0 (>56); GLUCOSE, FASTING 101 MG/DL (70-100); HDL CHOLESTEROL 30 MG/DL (>40); LDL CHOLESTEROL 100 MG/DL (<100); NON-HDL-C 118 MG/DL; POTASSIUM SERUM 3.8 MEQ/L (3.5-5.1); PROSTATIC SPECIFIC AG MONITOR 2.19 NG/ML (< 4.00); SODIUM LEVEL 138 MEQ/L (136-145); TOTAL PROTEIN 6.9 GM/DL (6.4-8.2); TRIGLYCERIDES LEVEL 89 MG/DL (<150)
[2022-05-07 21:07] LABS: TOTAL 25(OH) VITAMIN D 109.6 NG/ML (30.0-100.0)
[2022-05-07 21:08] LABS: TESTOSTERONE 254 NG/DL (241-827)
== END ==
LOC: M LAB 08:14
PROVIDERS: ATTEND Family Medicine
DX: I10 Essential (primary) hypertension (principal); R53.83 Other fatigue

== ENCOUNTER → 2022-10-07 | Outpatient (REF) | payer OTHER, MEDICARE | LOC: M SFHCDERM 13:03 | PROVIDERS: ATTEND Nurse Practitioner Family | DX: D23.5 Other benign neoplasm of skin of trunk (principal) ==

== ENCOUNTER 2023-02-21 16:00 | Emergency (ER) | payer OTHER, MEDICARE ==
[~2023-02-21] VITALS: Ht 177.8 cm; Wt 79.6 kg
[2023-02-21 16:01] VITALS: BP 146/88
[2023-02-21] MEDS ORDERED: PERCOCET 5MG/325MG TAB PO ONE (16:25)
[2023-02-21] MEDS ORDERED: OXYCODONE/APAP 5MG/325MG(HOME DOSE PACK) PO ONE (17:30)
[2023-02-21] MEDS ORDERED: PERC5TAB12 PO (17:30)
== END 2023-02-21 17:47 | disposition home or self-care (01) ==
LOC: M ED 16:00
DX: S42.455A Nondisplaced fracture of lateral condyle of left humerus, initial encounter for closed fracture (principal); W19.XXXA Unspecified fall, initial encounter; Y92.019 Unspecified place in single-family (private) house as the place of occurrence of the external cause; Y93.89 Activity, other specified; Y99.8 Other external cause status; I10 Essential (primary) hypertension; I25.10 Atherosclerotic heart disease of native coronary artery without angina pectoris; Z88.0 Allergy status to penicillin; Z79.899 Other long term (current) drug therapy

== ENCOUNTER → 2023-05-25 | Outpatient (REF) | payer OTHER, MEDICARE ==
[~2023-05-25] MED LIST changes: +PERC5TAB12 PO; -ROPI1TAB3 PO; +ROPI1TAB73 PO
[2023-05-25 18:31] LABS: HEMATOCRIT 44.9 % (42.0-52.0); HEMOGLOBIN 14.5 g/dl (13.5-17.5); MEAN CORPUSCULAR HEMOGLOBIN 28.7 pg (27.0-33.0); MEAN CORPUSCULAR HGB CONC 32.3 g/dl (32.0-36.5); MEAN CORPUSCULAR VOLUME 88.9 fl (80.0-96.0); PLATELET COUNT, AUTOMATED 420 10^3/uL (150-450); RED BLOOD COUNT 5.05 10^6/uL (4.30-6.10); WHITE BLOOD COUNT 5.6 10^3/uL (4.0-10.0)
[2023-05-25 18:54] LABS: THYROID STIMULATING HORMONE 0.932 uIU/ML (0.55-4.78)
[2023-05-25 18:55] LABS: TESTOSTERONE 427 NG/DL (241-827); TOTAL 25(OH) VITAMIN D 30.9 NG/ML (20.0-100.0)
[2023-05-25 18:57] LABS: ALKALINE PHOSPHATASE 242 U/L (46-116); ALT/SGPT 12 U/L (7.0-40); AST/SGOT 13 U/L (<34); BILIRUBIN,TOTAL 0.6 MG/DL (0.3-1.2); BLOOD UREA NITROGEN 10 MG/DL (9-23); CARBON DIOXIDE LEVEL 26 MMOL/L (20-31); CHLORIDE LEVEL 106 MMOL/L (98-107); CHOLESTEROL LEVEL 210 MG/DL (<200); CHOLESTEROL RISK RATIO 5.08 (<5); CREATININE FOR GFR 0.69 MG/DL (0.70-1.30); GLOMERULAR FILTRATION RATE > 60.0 (>56); GLUCOSE, FASTING 97 MG/DL (60-100); HDL CHOLESTEROL 41.3 MG/DL (>40); LDL CHOLESTEROL 150.3 MG/DL (<100); NON-HDL-C 168.7 MG/DL; SODIUM LEVEL 140 MMOL/L (136-145); TOTAL PROTEIN 6.9 G/DL (5.7-8.2); TRIGLYCERIDES LEVEL 92 MG/DL (<150)
== END ==
LOC: M LAB REF 17:40
PROVIDERS: ATTEND Family Medicine
DX: I10 Essential (primary) hypertension (principal); R53.83 Other fatigue

== ENCOUNTER → 2023-09-24 | Outpatient (CLI) | payer OTHER ==
[~2023-09-24] MED LIST changes: +CELE0.09 PO; -CELE1CAP9 PO
== END ==
LOC: M PLAIMG 09:50
PROVIDERS: ATTEND Family Medicine
DX: M54.30 Sciatica, unspecified side (principal)

== ENCOUNTER → 2023-09-27 | Outpatient (CLI) | payer OTHER ==
[2023-09-27 14:00] LABS: BASO # 0.1 10^3/uL (0.0-0.2); BASO % 0.8 % (0.0-1.0); EOS # 0.1 10^3/uL (0.0-0.5); EOS % 0.8 % (0.0-3.0); HEMATOCRIT 39.9 % (42.0-52.0); HEMOGLOBIN 13.1 g/dl (13.5-17.5); LYMPH # 1.4 10^3/uL (1.5-5.0); LYMPH % 17.5 % (24.0-44.0); MEAN CORPUSCULAR HEMOGLOBIN 29.3 pg (27.0-33.0); MEAN CORPUSCULAR HGB CONC 32.8 g/dl (32.0-36.5); MEAN CORPUSCULAR VOLUME 89.3 fl (80.0-96.0); MONO # 0.6 10^3/uL (0.0-0.8); MONO % 8.2 % (2.0-8.0); NEUTROPHILS # 5.7 10^3/uL (1.5-8.5); NEUTROPHILS % 72.4 % (36.0-66.0); PLATELET COUNT, AUTOMATED 427 10^3/uL (150-450); RED BLOOD COUNT 4.47 10^6/uL (4.30-6.10); WHITE BLOOD COUNT 7.8 10^3/uL (4.0-10.0)
[2023-09-27 14:19] LABS: ERYTHROCYTE SEDIMENTATION RATE 28 mm/hr (0-20)
[2023-09-27 14:28] LABS: C REACTIVE PROTEIN QUANTITATIV < 0.40 MG/DL (<1.0)
[2023-09-27 14:29] LABS: ALBUMIN 3.8 G/DL (3.2-5.2); ALKALINE PHOSPHATASE 241 U/L (46-116); ALT/SGPT 35 U/L (7.0-40); AST/SGOT 20 U/L (<34); BILIRUBIN,TOTAL 0.4 MG/DL (0.3-1.2); BLOOD UREA NITROGEN 27 MG/DL (9-23); CALCIUM LEVEL 9.5 MG/DL (8.5-10.1); CARBON DIOXIDE LEVEL 25 MMOL/L (20-31); CHLORIDE LEVEL 101 MMOL/L (98-107); CREATININE FOR GFR 0.56 MG/DL (0.70-1.30); GLOMERULAR FILTRATION RATE > 60.0 (>56); GLUCOSE, FASTING 103 MG/DL (60-100); POTASSIUM SERUM 4.3 MMOL/L (3.5-5.1); SODIUM LEVEL 137 MMOL/L (136-145); TOTAL PROTEIN 6.9 G/DL (5.7-8.2)
[2023-09-27 14:44] LABS: RHEUMATOID FACTOR QUANT < 3.5 IU/ML (<14)
== END ==
LOC: M PLALAB 10:25
PROVIDERS: ATTEND Orthopaedic Surgery
DX: M51.36 Other intervertebral disc degeneration, lumbar region (principal)

== ENCOUNTER 2023-11-07 15:42 | Emergency (ER) | payer OTHER ==
[2023-11-07 15:44] VITALS: TEMP 98.8
[2023-11-07] MEDS ORDERED: BENZONATATE 100MG CAPSULE PO ONE (16:45)
[2023-11-07 16:52] VITALS: BP 119/75; O2SAT 96
[2023-11-07] MEDS ORDERED: DOXY100C82 PO ×2 (17:35→18:01)
[2023-11-07] MEDS ORDERED: DOXYCYCLINE HYCLATE 100MG TABLET PO ONE ×2 (17:35)
[2023-11-07] MEDS ORDERED: BENZ200C70 PO ×2 (17:35→18:01)
== END 2023-11-07 18:03 | disposition home or self-care (01) ==
LOC: M ED 15:42
DX: J20.9 Acute bronchitis, unspecified (principal); I10 Essential (primary) hypertension; J30.89 Other allergic rhinitis; Z87.09 Personal history of other diseases of the respiratory system; Z79.899 Other long term (current) drug therapy; Z88.2 Allergy status to sulfonamides

== ENCOUNTER → 2023-11-30 | Outpatient (CLI) | payer OTHER ==
[~2023-11-30] MED LIST changes: +BENZ200C70 PO; +DOXY100C82 PO
[2023-11-30 17:14] LABS: BLOOD UREA NITROGEN 30 MG/DL (9-23); CALCIUM LEVEL 9.1 MG/DL (8.5-10.1); CARBON DIOXIDE LEVEL 27 MMOL/L (20-31); CHLORIDE LEVEL 101 MMOL/L (98-107); CPK CREATINE PHOSPHOKINASE 60 U/L (46-171); CREATININE FOR GFR 0.66 MG/DL (0.70-1.30); FERRITIN 112.2 NG/ML (10.5-307.3); FOLATE > 24.00 NG/ML (>5.4); GLOMERULAR FILTRATION RATE > 60.0 (>56); GLUCOSE, FASTING 85 MG/DL (60-100); IRON (FE) 113 UG/DL (65-175); PERCENT SATURATION 30.8 % (19.7-50.0); PHOSPHORUS LEVEL 4.5 MG/DL (2.5-4.9); POTASSIUM SERUM 4.6 MMOL/L (3.5-5.1); SODIUM LEVEL 135 MMOL/L (136-145); THYROID STIMULATING HORMONE 2.607 uIU/ML (0.55-4.78); THYROXINE (T4) 6.1 UG/DL (4.5-10.9); TOTAL IRON BINDING CAPACITY 367 UG/DL (250-425)
[2023-11-30 17:15] LABS: FREE THYROXINE INDEX 2.9 % (1.4-3.8); T UPTAKE 47.1 % (22.5-37.0)
[2023-11-30 17:16] LABS: VITAMIN B12 LEVEL 544 PG/ML (211-911)
[2023-11-30 18:12] LABS: HEMOGLOBIN A1c 5.2 % (4.0-6.0)
== END ==
LOC: M PLALAB 14:17
PROVIDERS: ATTEND Psychiatry & Neurology Neurology
DX: E53.8 Deficiency of other specified B group vitamins (principal); E11.9 Type 2 diabetes mellitus without complications; G62.9 Polyneuropathy, unspecified; R26.81 Unsteadiness on feet; E07.9 Disorder of thyroid, unspecified; Z11.3 Encounter for screening for infections with a predominantly sexual mode of transmission

== ENCOUNTER → 2024-03-03 | Outpatient (CLI) | payer OTHER ==
[2024-03-03 07:31] LABS: PROSTATIC SPECIFIC AG MONITOR 1.91 NG/ML (< 4.00)
== END ==
LOC: M LAB 06:11
PROVIDERS: ATTEND Family Medicine
DX: N40.0 Benign prostatic hyperplasia without lower urinary tract symptoms (principal); E29.1 Testicular hypofunction

== ENCOUNTER → 2024-07-20 | Outpatient (CLI) | payer OTHER ==
[2024-07-20 12:09] LABS: ALBUMIN 3.9 G/DL (3.2-5.2); ALKALINE PHOSPHATASE 223 U/L (46-116); ALT/SGPT 18 U/L (7.0-40); AST/SGOT 12 U/L (<34); BILIRUBIN,TOTAL 0.3 MG/DL (0.3-1.2); BLOOD UREA NITROGEN 16 MG/DL (9-23); CARBON DIOXIDE LEVEL 27 MMOL/L (20-31); CHLORIDE LEVEL 108 MMOL/L (98-107); CHOLESTEROL LEVEL 132 MG/DL (<200); CHOLESTEROL RISK RATIO 4.56 (<5); CREATININE FOR GFR 0.76 MG/DL (0.70-1.30); GLOMERULAR FILTRATION RATE > 60.0 (>56); GLUCOSE, FASTING 92 MG/DL (60-100); HDL CHOLESTEROL 28.9 MG/DL (>40); LDL CHOLESTEROL 84.5 MG/DL (<100); NON-HDL-C 103.1 MG/DL; POTASSIUM SERUM 4.2 MMOL/L (3.5-5.1); PSA SCREENING 1.86 NG/ML (< 4.00); SODIUM LEVEL 138 MMOL/L (136-145); TOTAL PROTEIN 6.9 G/DL (5.7-8.2); TRIGLYCERIDES LEVEL 93 MG/DL (<150)
[2024-07-20 12:11] LABS: HEMOGLOBIN A1c 5.3 % (4.0-6.0); TESTOSTERONE 600 NG/DL (241-827); THYROID STIMULATING HORMONE 1.759 uIU/ML (0.55-4.78); TOTAL 25(OH) VITAMIN D 35.4 NG/ML (20.0-100.0)
== END ==
LOC: M LAB 10:48
PROVIDERS: ATTEND Family Medicine
DX: I10 Essential (primary) hypertension (principal); E03.9 Hypothyroidism, unspecified; R53.83 Other fatigue

== ENCOUNTER → 2024-10-27 | Outpatient (CLI) | payer OTHER ==
[~2024-10-27] MED LIST changes: +GABA-1172 PO; -GABA-282 PO
[2024-10-27 10:29] LABS: HEMATOCRIT 47.3 % (42.0-52.0); HEMOGLOBIN 15.5 g/dl (13.5-17.5); MEAN CORPUSCULAR HEMOGLOBIN 29.4 pg (27.0-33.0); MEAN CORPUSCULAR HGB CONC 32.8 g/dl (32.0-36.5); MEAN CORPUSCULAR VOLUME 89.8 fl (80.0-96.0); PLATELET COUNT, AUTOMATED 453 10^3/uL (150-450); RED BLOOD COUNT 5.27 10^6/uL (4.30-6.10); WHITE BLOOD COUNT 6.6 10^3/uL (4.0-10.0)
[2024-10-27 10:43] LABS: ERYTHROCYTE SEDIMENTATION RATE 32 mm/hr (0-20)
[2024-10-27 10:54] LABS: URIC ACID 7.8 MG/DL (3.7-9.2)
[2024-10-27 10:57] LABS: ALBUMIN 3.8 G/DL (3.2-5.2); ALKALINE PHOSPHATASE 232 U/L (40-129); ALT/SGPT 15 U/L (7.0-40); AST/SGOT 10 U/L (<34); BILIRUBIN,TOTAL 0.8 MG/DL (0.3-1.2); BLOOD UREA NITROGEN 7 MG/DL (9-23); CALCIUM LEVEL 9.8 MG/DL (8.5-10.1); CARBON DIOXIDE LEVEL 25 MMOL/L (20-31); CHLORIDE LEVEL 106 MMOL/L (98-107); CHOLESTEROL LEVEL 190 MG/DL (<200); CHOLESTEROL RISK RATIO 5.67 (<5); GLOMERULAR FILTRATION RATE > 60.0 (>56); GLUCOSE, FASTING 101 MG/DL (60-100); HDL CHOLESTEROL 33.5 MG/DL (>40); LDL CHOLESTEROL 134.9 MG/DL (<100); NON-HDL-C 156.5 MG/DL; POTASSIUM SERUM 4.3 MMOL/L (3.5-5.1); SODIUM LEVEL 139 MMOL/L (136-145); TOTAL PROTEIN 7.2 G/DL (5.7-8.2); TRIGLYCERIDES LEVEL 108 MG/DL (<150)
[2024-10-27 10:58] LABS: C REACTIVE PROTEIN QUANTITATIV < 0.50 MG/DL (<1.0)
[2024-10-27 10:59] LABS: THYROID STIMULATING HORMONE 1.207 uIU/ML (0.55-4.78)
[2024-10-27 11:00] LABS: RHEUMATOID FACTOR QUANT 7.1 IU/ML (<14)
[2024-10-27 11:32] LABS: HEMOGLOBIN A1c 5.2 % (4.0-6.0)
[2024-10-28 11:02] LABS: T P ELECTROPHORESIS SO 7.2 g/dL (6.1-8.1)
[2024-10-30 13:38] LABS: ANA SCREEN, IFA NEGATIVE (NEGATIVE)
[2024-10-30 13:57] LABS: ALBUMIN SPEP 4.3 g/dL (3.8-4.8); ALPHA-1-GLOBULINS SO 0.4 g/dL (0.2-0.3); ALPHA-2-GLOBULINS SO 0.8 g/dL (0.5-0.9); BETA 2 GLOBULIN 0.4 g/dL (0.2-0.5); BETA-GLOBULIN SO 0.5 g/dL (0.4-0.6); GAMMA GLOBULINS SO 0.9 g/dL (0.8-1.7)
== END ==
LOC: M LAB 09:50
PROVIDERS: ATTEND Family Medicine
DX: D64.9 Anemia, unspecified (principal); M32.9 Systemic lupus erythematosus, unspecified; M10.9 Gout, unspecified; M06.9 Rheumatoid arthritis, unspecified

== ENCOUNTER → 2024-11-14 | Outpatient (CLI) | payer OTHER | LOC: M RAD 10:30 | PROVIDERS: ATTEND Family Medicine | DX: J44.9 Chronic obstructive pulmonary disease, unspecified (principal) ==

== ENCOUNTER → 2025-01-25 | Outpatient (CLI) | payer OTHER ==
[~2025-01-25] MED LIST changes: +DOXY-442 PO; -DOXY100C82 PO
== END ==
LOC: M SLEEP HO 01-24 10:38
PROVIDERS: ATTEND Physician Assistant
DX: G47.33 Obstructive sleep apnea (adult) (pediatric) (principal)

== ENCOUNTER → 2025-06-01 | Outpatient (CLI) | payer MEDICARE, OTHER ==
[~2025-06-01] MED LIST changes: -MELA3TAB7 PO; +MELA3TAB78 PO; -PRAV40TA2 PO; +PRAV40TA85 PO
== END ==
LOC: M RAD 10:11
PROVIDERS: ATTEND Internal Medicine Rheumatology
DX: R52 Pain, unspecified (principal); H04.123 Dry eye syndrome of bilateral lacrimal glands; Z87.898 Personal history of other specified conditions; R20.2 Paresthesia of skin; M19.021 Primary osteoarthritis, right elbow; M19.022 Primary osteoarthritis, left elbow; M77.8 Other enthesopathies, not elsewhere classified; M19.071 Primary osteoarthritis, right ankle and foot; M19.072 Primary osteoarthritis, left ankle and foot; M19.041 Primary osteoarthritis, right hand; M19.042 Primary osteoarthritis, left hand

== ENCOUNTER → 2025-06-13 | Outpatient (REF) | payer MEDICARE ==
[~2025-06-13] MED LIST changes: +PROZ10CA11 PO; -PROZ10CA7 PO
[2025-06-13 16:01] LABS: APPEARANCE, URINE CLEAR (CLEAR); BACTERIA, URINE AUTO NEGATIVE (NEGATIVE); BILIRUBIN, URINE AUTO NEGATIVE (NEGATIVE); BLOOD, URINE BLOOD NEGATIVE (NEGATIVE); GLUCOSE, URINE (UA) AUTO NEGATIVE (NEGATIVE); KETONE, URINE AUTO NEGATIVE (NEGATIVE); LEUKOCYTE ESTERASE, URINE AUTO NEGATIVE (NEGATIVE); MUCUS, URINE SMALL (NEGATIVE); NITRITE, URINE AUTO NEGATIVE (NEGATIVE); PROTEIN, URINE AUTO NEGATIVE (NEGATIVE); RBC, URINE AUTO 1 /HPF (0-3); SPECIFIC GRAVITY URINE AUTO 1.016 (1.002-1.035); SQUAMOUS EPITHELIAL CELL UR AU 0 /HPF (0-6); UROBILINOGEN, URINE AUTO 0.2 mg/dL (0.0-2.0); WBC, URINE AUTO 1 /HPF (0-3)
[2025-06-13 16:04] LABS: ALT/SGPT 13 U/L (7.0-40); AST/SGOT 13 U/L (<34); C REACTIVE PROTEIN QUANTITATIV < 0.50 MG/DL (<1.0); CALCIUM LEVEL 9.3 MG/DL (8.5-10.1); CARBON DIOXIDE LEVEL 27 MMOL/L (20-31); CHLORIDE LEVEL 101 MMOL/L (98-107); CREATININE FOR GFR 0.75 MG/DL (0.70-1.30); GLOMERULAR FILTRATION RATE > 90.0 (>56); POTASSIUM SERUM 4.0 MMOL/L (3.5-5.1); SODIUM LEVEL 141 MMOL/L (136-145)
[2025-06-13 16:12] LABS: COMPLEMENT C4 32.1 MG/DL (12-36)
[2025-06-13 16:16] LABS: BASO # 0.0 10^3/uL (0.0-0.2); BASO % 0.7 % (0.0-1.0); EOS # 0.1 10^3/uL (0.0-0.5); EOS % 1.5 % (0.0-3.0); LYMPH # 1.1 10^3/uL (1.5-5.0); LYMPH % 18.9 % (24.0-44.0); MONO # 0.5 10^3/uL (0.0-0.8); MONO % 8.2 % (2.0-8.0); NEUTROPHILS # 4.2 10^3/uL (1.5-8.5); NEUTROPHILS % 70.5 % (36.0-66.0); PLATELET COUNT, AUTOMATED 405 10^3/uL (150-450)
[2025-06-13 16:17] LABS: TOTAL PROTEIN,RANDOM URINE 27.0 MG/DL (0.0-14.0)
[2025-06-13 16:27] LABS: ERYTHROCYTE SEDIMENTATION RATE 38 mm/hr (0-20)
== END ==
LOC: M SFHCLERA 08:48
PROVIDERS: ATTEND Internal Medicine
DX: R52 Pain, unspecified (principal); H04.123 Dry eye syndrome of bilateral lacrimal glands; Z87.898 Personal history of other specified conditions; R20.2 Paresthesia of skin

== ENCOUNTER → 2025-08-07 | Outpatient (REF) | payer MEDICARE ==
[2025-08-07 19:58] LABS: PSA SCREENING 2.21 NG/ML (< 4.00)
[2025-08-07 20:04] LABS: ALT/SGPT 23 U/L (7.0-40); AST/SGOT 19 U/L (<34); CALCIUM LEVEL 8.6 MG/DL (8.5-10.1); CARBON DIOXIDE LEVEL 28 MMOL/L (20-31); CHLORIDE LEVEL 103 MMOL/L (98-107); CREATININE FOR GFR 0.78 MG/DL (0.70-1.30); GLOMERULAR FILTRATION RATE > 90.0 (>56); POTASSIUM SERUM 4.3 MMOL/L (3.5-5.1); SODIUM LEVEL 140 MMOL/L (136-145); TESTOSTERONE 622 NG/DL (241-827)
== END ==
LOC: M SFHCLERA 08:47
PROVIDERS: ATTEND Internal Medicine
DX: R94.5 Abnormal results of liver function studies (principal); E29.1 Testicular hypofunction
CPT/HCPCS: 80053; 82977; 84403; G0103

== ENCOUNTER → 2025-08-20 | Outpatient (REF) | payer OTHER ==
[2025-08-20 18:41] LABS: ALT/SGPT 13 U/L (7.0-40); AST/SGOT 14 U/L (<34); CALCIUM LEVEL 8.4 MG/DL (8.5-10.1); CARBON DIOXIDE LEVEL 28 MMOL/L (20-31); CHLORIDE LEVEL 101 MMOL/L (98-107); CREATININE FOR GFR 0.74 MG/DL (0.70-1.30); GLOMERULAR FILTRATION RATE > 90.0 (>56); PHOSPHORUS LEVEL 3.9 MG/DL (2.5-4.9); POTASSIUM SERUM 4.2 MMOL/L (3.5-5.1); PTH INTACT 74.8 PG/ML (18.5-88.0); SODIUM LEVEL 137 MMOL/L (136-145)
[2025-08-20 18:44] LABS: TOTAL 25(OH) VITAMIN D 28.0 NG/ML (20.0-100.0)
== END ==
LOC: M SFHCLERA 14:39
PROVIDERS: ATTEND Internal Medicine
DX: R74.8 Abnormal levels of other serum enzymes (principal)

== ENCOUNTER → 2025-11-02 | Outpatient (REF) | payer OTHER | LOC: M LAB REF 16:17 | PROVIDERS: ATTEND Otolaryngology | DX: H60.8X2 Other otitis externa, left ear (principal); H66.92 Otitis media, unspecified, left ear ==